=== PATIENT | male | born 1940 | race Caucasian/White ===

== ENCOUNTER 2017-10-24 07:43 | Day surgery (SDC) | payer MEDICARE ==
[~2017-10-24 07:43] MED LIST: AMLO10; AMLO10 PO; ASPI81CH; ASPI81CH PO; ATOR10; ATOR10 PO; DAILY MULTIPLE1 EACH; DOXA2; DOXA4 PO; FURO20; FURO20 PO; METO50ER; METO50ER PO; ZESTRIL40 MG; ZESTRIL40 MG PO; [UNRECOGNIZED DRUG - OTHER] PO
[2017-12-22] MEDS ORDERED: XARELTO20 MG PO (10:28)
[2017-12-22] MEDS ORDERED: Lasix40 MG PO (13:44)
[2018-01-02] MEDS ORDERED: IBUP600 PO (15:10)
[2018-01-02] MEDS ORDERED: AMLO10 PO (15:10)
[2018-01-02] MEDS ORDERED: XARELTO20 MG PO (15:11)
== END 2017-10-24 23:02 | disposition home or self-care (01) ==
LOC: ORSCMMR 07:43
PROVIDERS: Orthopaedic Surgery
PROC: 0X6M0Z3 Detachment at Left Thumb, Low, Open Approach (ICD-10-PCS; principal; 2017-10-24 09:30)
DX: S62.502B Fracture of unspecified phalanx of left thumb, initial encounter for open fracture (principal); I10 Essential (primary) hypertension; I25.10 Atherosclerotic heart disease of native coronary artery without angina pectoris; E66.01 Morbid (severe) obesity due to excess calories; Z68.41 Body mass index [BMI] 40.0-44.9, adult; Z79.899 Other long term (current) drug therapy; Z79.82 Long term (current) use of aspirin
CPT/HCPCS: 73140; J0690; J2250; J3010; J7120

== ENCOUNTER 2018-01-03 05:41 | Day surgery (SDC) | payer MEDICARE ==
[~2018-01-03] VITALS: Ht 182.9 cm; Wt 125.0 kg
[~2018-01-03 05:41] MED LIST changes: +IBUP600 PO; +Lasix40 MG PO; +XARELTO20 MG PO
== END 2018-01-03 22:37 | disposition home or self-care (01) ==
LOC: MHTC 05:41
PROC: 5A2204Z Restoration of Cardiac Rhythm, Single (ICD-10-PCS; principal; 2018-01-03)
DX: I48.1 Persistent atrial fibrillation (principal); Z95.2 Presence of prosthetic heart valve; I10 Essential (primary) hypertension; E78.00 Pure hypercholesterolemia, unspecified; Z87.891 Personal history of nicotine dependence
CPT/HCPCS: 92960; 93005; 93010; 99152; J2250; J3010; J7040

== ENCOUNTER 2020-01-24 06:15 | Day surgery (SDC) | payer MEDICARE ==
[~2020-01-24] VITALS: Ht 180.3 cm; Wt 125.0 kg
--- NOTE | 2020-01-24 10:00 | NUR ---
Pt received from Rivera Daniels RN, Pt in recliner chair denies any pain. Left shoulder site of icd dry and intact with opsite over the 2x2. No bleeding or hematoma noted. Pt sitting up drinking diet coke. IV Hep lock left AC. Pt with Trigeminy,bigeminy. VSS. Call light given to patient.
--- NOTE | 2020-01-24 11:12 | NUR ---
x-RAY HERE FOR LEAD PLACEMENT. SBAR TO KELBY LLOYD RN.
--- NOTE | 2020-01-24 11:40 | NUR ---
Pt transferred via wheelchair to room 9. Pt up voided and returned to bed.
--- NOTE | 2020-01-24 11:54 | NUR ---
ASSUMED CARE FROM FINANCE CONTROLLER, POST ICD PLACEMENT LEFT CHEST WALL. DRESSING CLEAN, DRY AND INTACT. DENIES CP AT THIS TIME, A/A/A/OX4, WILL CONTINUE TO MONITOR.
--- NOTE | 2020-01-24 18:35 | NUR ---
MADDI SUMMARY; ASSUMED CARE FROM [facility] DURING SHIFT POST ICD PLACEMENT TO LEFT CHEST WALL. DRESSING CLEAN, DRY AND INTACT. SLIGHT DISCOMFORT TO LEFT CHEST, MEDICATED WITH PO TYLENOLOL PER PT REQUEST. PAIN RESOLVED AT THIS TIME. DENIES SOB. INSTRUCTIONS GIVEN TO LIMIT LEFT ARM MOVEMENT WITH VERBAL UNDERSTANDING OF INSTRUCTIONS. IV TO LEFT AC WNL. WATCHING TV AT THIS TIME, DENIES NEEDS. WILL CONTINUE TO MONITOR UNTIL SHIFT CHANGE.
--- NOTE | 2020-01-25 00:16 | NUR ---
MID SHIFT PT AXO, VSS. PT INDEPENDENT IN ROOM. AICD IMPLANT SITE DRESSING INTACT. AREA TENDER AND SLIGHTLY RED BUT NOT EXCESSIVELY WARM. NO NEW DRAINAGE NOTED. NO ACUTE CARDIAC EPISODES NOTED ON TELE. REPORT GIVEN AND CARE RELINQUISHED TO TO ELLA [facility]LE.
--- NOTE | 2020-01-25 07:41 | NUR ---
ASSUMED CARE AT 0700, REPORT FROM ELEUTERIO JARAMILLO. SITTING UP AT SIDE OF BED, LEFT ARM SLING IN PLACE. A/A/OX4. ICD SITE TO LEFT CHEST WALL BANDAGED, NO BLEEDING, DRESSING DRY AND INTACT. PLAN OF CARE REVIEWED WITH PT, WILL CONTINUE TO MONITOR.
--- NOTE | 2020-01-25 11:58 | NUR ---
DISCHARGE INSTRUCTIONS REVIEWED WITH PT WITH CLEAR UNDERSTANDING. WOUND CARE FOR SURGICAL SITE REVIEWED, VERBALIZES UNDERSTANDING OF INSTRUCTIONS.
== END 2020-01-25 11:51 | disposition home or self-care (01) ==
LOC: MHTC 06:15 → PCU 10:58 → MHTC 01-25 11:51
DX: I42.8 Other cardiomyopathies (principal); I47.2 Ventricular tachycardia; I48.0 Paroxysmal atrial fibrillation; E78.00 Pure hypercholesterolemia, unspecified; I11.9 Hypertensive heart disease without heart failure; Z88.8 Allergy status to other drugs, medicaments and biological substances; Z79.899 Other long term (current) drug therapy; Z79.01 Long term (current) use of anticoagulants; Z87.891 Personal history of nicotine dependence
CPT/HCPCS: 33249; 71045; 71046; 76937; 99152; 99153; A9270; A9270-GY; C1722; C1894; C1895; J0690; J1644; J2250; J3010; J7030; J7040

== ENCOUNTER 2020-03-29 07:21 | Emergency (ER) | payer MEDICARE, OTHER ==
[~2020-03-29] VITALS: Ht 182.9 cm; Wt 124.7 kg
[~2020-03-29 07:21] MED LIST changes: +AMOCLA875 PO; -DOXA4 PO; -FURO20 PO; +FURO40 PO; +LISI20 PO; +MULTI VITAMIN1 EACH PO; -ZESTRIL40 MG PO; -[UNRECOGNIZED DRUG - OTHER] PO
[2020-03-29 07:59] LABS: BASOPHILS ABSOLUTE AUTO 0.03 K/mm3 (0.00-0.23); BASOPHILS PERCENT AUTO 1 % (0-2); EOSINOPHILS ABSOLUTE AUTO 0.11 K/mm3 (0.00-0.68); EOSINOPHILS PERCENT AUTO 2 % (0-6); Hematocrit 42.1 % (37.0-53.0); Hemoglobin 13.8 g/dL (13.5-17.5); IMMATURE GRAN ABSOLUTE AUTO 0.03 K/mm3 (0.00-0.10); IMMATURE GRAN PERCENT AUTO 1 % (0-1); LYMPHOCYTES ABSOLUTE AUTO 0.76 K/mm3 (0.84-5.20); LYMPHOCYTES PERCENT AUTO 12 % (21-46); MONOCYTES ABSOLUTE AUTO 0.72 K/mm3 (0.16-1.47); MONOCYTES PERCENT AUTO 11 % (4-13); Mean Corpuscular HGB Conc 32.8 g/dL (31.5-36.5); Mean Corpuscular Volume 92 fL (80-100); Mean Platelet Volume 11.2 fL (9.1-12.4); NEUTROPHILS ABSOLUTE AUTO 4.67 K/mm3 (1.96-9.15); NEUTROPHILS PERCENT AUTO 74 % (41-73); Platelet Count 153 K/mm3 (150-400); RDW Coefficient Variation 13.8 % (11.7-14.2); RDW Standard Deviation 46.4 fL (35.1-46.3); White Blood Cell Count 6.32 K/mm3 (4.00-11.30)
[2020-03-29 08:39] LABS: Alanine Aminotransfer (ALT/SGP 38 U/L (12-78); Albumin, Blood 3.9 g/dL (3.4-5.0); Albumin/Globulin Ratio 1.3 (0.8-1.8); Alk Phos 102 U/L (50-136); Anion Gap 6 mmol/L (6-16); Aspartate Aminotrans (AST/SGOT 20 U/L (12-37); Bilirubin, Total 0.5 mg/dL (0.1-1.0); Blood Urea Nitrogen 12 mg/dL (8-24); Bun/Creatinine Ratio 11.5 (12.0-20.0); CO2, Blood 26 mmol/L (21-32); Calcium, Blood 8.5 mg/dL (8.5-10.1); Chloride, Blood 96 mmol/L (98-108); Creatinine, Blood 1.04 mg/dL (0.60-1.20); Globulin, Blood 2.9 g/dL (2.2-4.0); Glomerular Filtration Rate >60 (60-); Glucose, Blood 119 mg/dL (70-99); Sodium, Blood 128 mmol/L (136-145); Total Protein, Blood 6.8 g/dL (6.4-8.2)
[2020-04-05] MEDS ORDERED: IBUP800 PO (14:20)
[2020-04-05] MEDS ORDERED: Cardura8 MG PO (14:41)
[2020-04-05] MEDS ORDERED: AMLO10 PO (14:41)
[2020-04-07] MEDS ORDERED: ACET325 PO (10:03)
[2020-04-07] MEDS ORDERED: FAMO20 PO (10:03)
[2020-04-07] MEDS ORDERED: METO2.5 PO (10:04)
[2020-04-07] MEDS ORDERED: ONDA4ODT MM (10:04)
[2020-04-07] MEDS ORDERED: TAMS.4ER PO (10:05)
== END 2020-03-29 10:12 | disposition home or self-care (01) ==
LOC: ER 07:21
PROVIDERS: Emergency Medicine
DX: R06.02 Shortness of breath (principal); I25.10 Atherosclerotic heart disease of native coronary artery without angina pectoris; Z95.0 Presence of cardiac pacemaker; Z88.8 Allergy status to other drugs, medicaments and biological substances; Z91.09 Other allergy status, other than to drugs and biological substances; Z79.899 Other long term (current) drug therapy; Z20.828 Contact with and (suspected) exposure to other viral communicable diseases; Z87.891 Personal history of nicotine dependence
CPT/HCPCS: 36415; 71045; 80053; 83880; 84484; 85025; 93005; 93010; 94640; 99285-25; U0002

== ENCOUNTER 2020-04-01 07:44 | Inpatient (IN) | payer MEDICARE, OTHER ==
[~2020-04-01] VITALS: Ht 182.9 cm; Wt 83.9 kg
[2020-04-01] MEDS ORDERED: ALBU3IS (08:06)
[2020-04-01 09:00] LABS: Base Excess Venous 1.2 mmol/L; Bicarbonate Venous 25.3 mmol/L (24.0-30.0); PCO2 Venous 39.9 mmHg (38-42); PO2 Venous 76.8 mmHg (38-42); pH Blood Venous 7.42 (7.34-7.37)
[2020-04-01 09:10] LABS: BASOPHILS ABSOLUTE AUTO 0.02 K/mm3 (0.00-0.23); BASOPHILS PERCENT AUTO 0 % (0-2); EOSINOPHILS ABSOLUTE AUTO 0.04 K/mm3 (0.00-0.68); EOSINOPHILS PERCENT AUTO 1 % (0-6); Hemoglobin 13.7 g/dL (13.5-17.5); IMMATURE GRAN ABSOLUTE AUTO 0.03 K/mm3 (0.00-0.10); IMMATURE GRAN PERCENT AUTO 0 % (0-1); LYMPHOCYTES ABSOLUTE AUTO 0.55 K/mm3 (0.84-5.20); LYMPHOCYTES PERCENT AUTO 8 % (21-46); MONOCYTES ABSOLUTE AUTO 0.64 K/mm3 (0.16-1.47); MONOCYTES PERCENT AUTO 9 % (4-13); Mean Corpuscular HGB 30.7 pg (26.0-34.0); Mean Corpuscular HGB Conc 34.3 g/dL (31.5-36.5); Mean Corpuscular Volume 90 fL (80-100); NEUTROPHILS ABSOLUTE AUTO 5.55 K/mm3 (1.96-9.15); NEUTROPHILS PERCENT AUTO 81 % (41-73); Platelet Count 146 K/mm3 (150-400); RDW Coefficient Variation 13.4 % (11.7-14.2); RDW Standard Deviation 44.1 fL (35.1-46.3); Red Blood Cell Count 4.46 M/mm3 (4.30-5.90); White Blood Cell Count 6.83 K/mm3 (4.00-11.30)
[2020-04-01 09:32] LABS: Alanine Aminotransfer (ALT/SGP 37 U/L (12-78); Albumin/Globulin Ratio 1.4 (0.8-1.8); Alk Phos 106 U/L (50-136); Anion Gap 8 mmol/L (6-16); Aspartate Aminotrans (AST/SGOT 19 U/L (12-37); Bilirubin, Total 0.8 mg/dL (0.1-1.0); Blood Urea Nitrogen 11 mg/dL (8-24); Bun/Creatinine Ratio 11.5 (12.0-20.0); CO2, Blood 26 mmol/L (21-32); Calcium, Blood 8.6 mg/dL (8.5-10.1); Chloride, Blood 92 mmol/L (98-108); Creatinine, Blood 0.96 mg/dL (0.60-1.20); Globulin, Blood 2.8 g/dL (2.2-4.0); Glomerular Filtration Rate >60 (60-); Glucose, Blood 119 mg/dL (70-99); Potassium, Blood 3.8 mmol/L (3.5-5.5); Sodium, Blood 126 mmol/L (136-145); Total Protein, Blood 6.8 g/dL (6.4-8.2)
[2020-04-02 04:54] LABS: Hematocrit 37.3 % (37.0-53.0); Hemoglobin 12.8 g/dL (13.5-17.5); Mean Corpuscular HGB 30.5 pg (26.0-34.0); Mean Corpuscular HGB Conc 34.3 g/dL (31.5-36.5); Mean Corpuscular Volume 89 fL (80-100); Platelet Count 145 K/mm3 (150-400); RDW Coefficient Variation 13.2 % (11.7-14.2); RDW Standard Deviation 43.4 fL (35.1-46.3); Red Blood Cell Count 4.19 M/mm3 (4.30-5.90); White Blood Cell Count 5.45 K/mm3 (4.00-11.30)
[2020-04-02 05:18] LABS: Alanine Aminotransfer (ALT/SGP 32 U/L (12-78); Albumin, Blood 3.6 g/dL (3.4-5.0); Albumin/Globulin Ratio 1.3 (0.8-1.8); Alk Phos 101 U/L (50-136); Anion Gap 6 mmol/L (6-16); Aspartate Aminotrans (AST/SGOT 19 U/L (12-37); Bilirubin, Total 0.9 mg/dL (0.1-1.0); Blood Urea Nitrogen 11 mg/dL (8-24); Bun/Creatinine Ratio 11.6 (12.0-20.0); CO2, Blood 27 mmol/L (21-32); Calcium, Blood 8.2 mg/dL (8.5-10.1); Chloride, Blood 92 mmol/L (98-108); Creatinine, Blood 0.95 mg/dL (0.60-1.20); Globulin, Blood 2.8 g/dL (2.2-4.0); Glomerular Filtration Rate >60 (60-); Glucose, Blood 108 mg/dL (70-99); Potassium, Blood 4.1 mmol/L (3.5-5.5); Sodium, Blood 125 mmol/L (136-145); Total Protein, Blood 6.4 g/dL (6.4-8.2)
[2020-04-03 05:10] LABS: BASOPHILS ABSOLUTE AUTO 0.04 K/mm3 (0.00-0.23); BASOPHILS PERCENT AUTO 1 % (0-2); EOSINOPHILS ABSOLUTE AUTO 0.11 K/mm3 (0.00-0.68); EOSINOPHILS PERCENT AUTO 2 % (0-6); Hematocrit 38.8 % (37.0-53.0); IMMATURE GRAN ABSOLUTE AUTO 0.02 K/mm3 (0.00-0.10); IMMATURE GRAN PERCENT AUTO 0 % (0-1); LYMPHOCYTES ABSOLUTE AUTO 0.94 K/mm3 (0.84-5.20); LYMPHOCYTES PERCENT AUTO 16 % (21-46); MONOCYTES ABSOLUTE AUTO 0.78 K/mm3 (0.16-1.47); MONOCYTES PERCENT AUTO 13 % (4-13); Mean Corpuscular HGB 30.1 pg (26.0-34.0); Mean Corpuscular HGB Conc 33.5 g/dL (31.5-36.5); Mean Corpuscular Volume 90 fL (80-100); Mean Platelet Volume 10.9 fL (9.1-12.4); NEUTROPHILS ABSOLUTE AUTO 3.92 K/mm3 (1.96-9.15); NEUTROPHILS PERCENT AUTO 68 % (41-73); Platelet Count 153 K/mm3 (150-400); RDW Coefficient Variation 13.2 % (11.7-14.2); Red Blood Cell Count 4.32 M/mm3 (4.30-5.90); White Blood Cell Count 5.81 K/mm3 (4.00-11.30)
[2020-04-03 05:41] LABS: Anion Gap 4 mmol/L (6-16); Blood Urea Nitrogen 14 mg/dL (8-24); Bun/Creatinine Ratio 13.6 (12.0-20.0); CO2, Blood 29 mmol/L (21-32); Calcium, Blood 8.1 mg/dL (8.5-10.1); Chloride, Blood 94 mmol/L (98-108); Creatinine, Blood 1.03 mg/dL (0.60-1.20); Glomerular Filtration Rate >60 (60-); Glucose, Blood 97 mg/dL (70-99); Potassium, Blood 4.1 mmol/L (3.5-5.5); Sodium, Blood 127 mmol/L (136-145)
[2020-04-03] MEDS ORDERED: Amiodarone HCl200 MG PO (17:06)
[2020-04-03] MEDS ORDERED: SPIR50 PO (17:07)
[2020-04-03] MEDS ORDERED: ALBU90OI INH (17:07)
[2020-04-05] MEDS ORDERED: IBUP800 PO (14:20)
[2020-04-05] MEDS ORDERED: Cardura8 MG PO (14:41)
[2020-04-05] MEDS ORDERED: AMLO10 PO (14:41)
[2020-04-07] MEDS ORDERED: ACET325 PO (10:03)
[2020-04-07] MEDS ORDERED: FAMO20 PO (10:03)
[2020-04-07] MEDS ORDERED: METO2.5 PO (10:04)
[2020-04-07] MEDS ORDERED: ONDA4ODT MM (10:04)
[2020-04-07] MEDS ORDERED: TAMS.4ER PO (10:05)
== END 2020-04-03 17:15 | disposition home or self-care (01) | DRG 291 ==
LOC: ER 07:44 → MEDS 11:30
PROVIDERS: Internal Medicine; Nurse Practitioner Acute Care; Physician Assistant; ADMIT Internal Medicine
DX: I11.0 Hypertensive heart disease with heart failure (principal); J96.01 Acute respiratory failure with hypoxia; E87.1 Hypo-osmolality and hyponatremia; Z20.828 Contact with and (suspected) exposure to other viral communicable diseases; I50.43 Acute on chronic combined systolic (congestive) and diastolic (congestive) heart failure; I48.0 Paroxysmal atrial fibrillation; I42.8 Other cardiomyopathies; I25.10 Atherosclerotic heart disease of native coronary artery without angina pectoris; E78.00 Pure hypercholesterolemia, unspecified; E78.5 Hyperlipidemia, unspecified; Z87.891 Personal history of nicotine dependence
CPT/HCPCS: 36415; 71045; 71260; 80048; 80053; 82803; 82947; 83880; 84295; 84484; 85025; 85027; 85379; 93005; 93010; 94644; 94660; 94760; 94762; 96365; 96366; 99285-25; C8929; J1940; J3475; Q9957; Q9967; U0002

== ENCOUNTER 2020-05-31 08:24 | Emergency (ER) | payer MEDICARE ==
[~2020-05-31] VITALS: Ht 182.9 cm; Wt 125.2 kg
[~2020-05-31 08:24] MED LIST changes: +ACET325 PO; +ALBU3IS; +ALBU90OI INH; +Amiodarone HCl200 MG PO; +Cardura8 MG PO; +FAMO20 PO; +IBUP800 PO; +METO2.5 PO; +ONDA4ODT MM; +SPIR50 PO; +TAMS.4ER PO
[2020-05-31] MEDS ORDERED: ENTRESTO 24 MG1 EACH PO (08:54)
[2020-05-31 09:32] LABS: Troponin I <0.015 ng/mL (0.000-0.040)
[2020-05-31 09:33] LABS: Alanine Aminotransfer (ALT/SGP 45 U/L (12-78); Albumin, Blood 3.9 g/dL (3.4-5.0); Albumin/Globulin Ratio 1.3 (0.8-1.8); Alk Phos 97 U/L (50-136); Anion Gap 8 mmol/L (6-16); Aspartate Aminotrans (AST/SGOT 27 U/L (12-37); Bilirubin, Total 0.6 mg/dL (0.1-1.0); Blood Urea Nitrogen 25 mg/dL (8-24); CO2, Blood 25 mmol/L (21-32); Calcium, Blood 8.7 mg/dL (8.5-10.1); Chloride, Blood 106 mmol/L (98-108); Creatinine, Blood 1.56 mg/dL (0.60-1.20); Glomerular Filtration Rate 46 (60-); Glucose, Blood 138 mg/dL (70-99); Potassium, Blood 4.3 mmol/L (3.5-5.5); Sodium, Blood 139 mmol/L (136-145); Total Protein, Blood 6.9 g/dL (6.4-8.2)
[2020-05-31 09:39] LABS: BASOPHILS ABSOLUTE AUTO 0.03 K/mm3 (0.00-0.23); BASOPHILS PERCENT AUTO 0 % (0-2); EOSINOPHILS ABSOLUTE AUTO 0.11 K/mm3 (0.00-0.68); EOSINOPHILS PERCENT AUTO 2 % (0-6); Hematocrit 43.9 % (37.0-53.0); IMMATURE GRAN ABSOLUTE AUTO 0.02 K/mm3 (0.00-0.10); IMMATURE GRAN PERCENT AUTO 0 % (0-1); LYMPHOCYTES ABSOLUTE AUTO 0.97 K/mm3 (0.84-5.20); LYMPHOCYTES PERCENT AUTO 13 % (21-46); MONOCYTES ABSOLUTE AUTO 0.81 K/mm3 (0.16-1.47); MONOCYTES PERCENT AUTO 11 % (4-13); Mean Corpuscular HGB 29.8 pg (26.0-34.0); Mean Corpuscular HGB Conc 31.9 g/dL (31.5-36.5); Mean Corpuscular Volume 93 fL (80-100); Mean Platelet Volume 11.3 fL (9.1-12.4); NEUTROPHILS ABSOLUTE AUTO 5.35 K/mm3 (1.96-9.15); NEUTROPHILS PERCENT AUTO 73 % (41-73); Platelet Count 200 K/mm3 (150-400); RDW Coefficient Variation 15.7 % (11.7-14.2); RDW Standard Deviation 54.5 fL (35.1-46.3); White Blood Cell Count 7.29 K/mm3 (4.00-11.30)
== END 2020-05-31 12:23 | disposition home or self-care (01) ==
LOC: ER 08:24
PROVIDERS: Emergency Medicine
DX: I11.0 Hypertensive heart disease with heart failure (principal); I50.9 Heart failure, unspecified; I25.10 Atherosclerotic heart disease of native coronary artery without angina pectoris; I48.91 Unspecified atrial fibrillation; E78.00 Pure hypercholesterolemia, unspecified; Z91.09 Other allergy status, other than to drugs and biological substances; Z88.8 Allergy status to other drugs, medicaments and biological substances; Z79.01 Long term (current) use of anticoagulants; Z79.899 Other long term (current) drug therapy; Z87.891 Personal history of nicotine dependence
CPT/HCPCS: 71045; 80053; 83880; 84484; 85025; 93005; 93010; 96374; 99285-25; J1940

== ENCOUNTER 2020-08-11 18:13 | Inpatient (IN) | payer MEDICARE ==
[~2020-08-11] VITALS: Ht 182.9 cm; Wt 120.3 kg
[~2020-08-11 18:13] MED LIST changes: +AMLO5 PO; +ANORO ELLIPTA1 EAC1 INH; +BUME2 PO; +ENTRESTO 24 MG1 EACH PO; +IBU800 MG PO; +Isosorbide Mono30 MG PO; +METO25ER PO; +XARELTO15 MG PO
[2020-08-11] MEDS ORDERED: FARXIGA10 MG PO ×2 (18:51→18:55)
[2020-08-11] MEDS ORDERED: Amiodarone HCl200 MG PO (18:53)
[2020-08-11] MEDS ORDERED: ATOR20 PO (18:53)
[2020-08-11] MEDS ORDERED: IBUP800 PO (18:54)
[2020-08-11] MEDS ORDERED: METO25ER PO (18:54)
[2020-08-11] MEDS ORDERED: ENTRESTO 97 MG1 EACH PO (18:55)
[2020-08-11] MEDS ORDERED: XARELTO15 MG PO (18:55)
[2020-08-11 20:03] LABS: BASOPHILS ABSOLUTE AUTO 0.03 K/mm3 (0.00-0.23); BASOPHILS PERCENT AUTO 0 % (0-2); EOSINOPHILS ABSOLUTE AUTO 0.04 K/mm3 (0.00-0.68); EOSINOPHILS PERCENT AUTO 0 % (0-6); Hematocrit 45.8 % (37.0-53.0); Hemoglobin 14.7 g/dL (13.5-17.5); IMMATURE GRAN ABSOLUTE AUTO 0.05 K/mm3 (0.00-0.10); IMMATURE GRAN PERCENT AUTO 0 % (0-1); LYMPHOCYTES ABSOLUTE AUTO 0.35 K/mm3 (0.84-5.20); LYMPHOCYTES PERCENT AUTO 3 % (21-46); MONOCYTES ABSOLUTE AUTO 0.78 K/mm3 (0.16-1.47); MONOCYTES PERCENT AUTO 6 % (4-13); Mean Corpuscular HGB 29.9 pg (26.0-34.0); Mean Corpuscular HGB Conc 32.1 g/dL (31.5-36.5); Mean Corpuscular Volume 93 fL (80-100); Mean Platelet Volume 11.1 fL (9.1-12.4); NEUTROPHILS ABSOLUTE AUTO 13.02 K/mm3 (1.96-9.15); NEUTROPHILS PERCENT AUTO 91 % (41-73); Platelet Count 151 K/mm3 (150-400); RDW Coefficient Variation 14.4 % (11.7-14.2); RDW Standard Deviation 50.2 fL (35.1-46.3); Red Blood Cell Count 4.91 M/mm3 (4.30-5.90); White Blood Cell Count 14.27 K/mm3 (4.00-11.30)
[2020-08-11 20:19] LABS: Albumin, Blood 3.9 g/dL (3.4-5.0); Albumin/Globulin Ratio 1.1 (0.8-1.8); Bilirubin, Total 0.4 mg/dL (0.1-1.0); Bun/Creatinine Ratio 16.7 (12.0-20.0); Calcium, Blood 8.7 mg/dL (8.5-10.1); Creatinine, Blood 1.32 mg/dL (0.60-1.20); Globulin, Blood 3.4 g/dL (2.2-4.0); Potassium, Blood 5.1 mmol/L (3.5-5.5); Total Protein, Blood 7.3 g/dL (6.4-8.2); Troponin I 0.021 ng/mL (0.000-0.040)
[2020-08-11 20:47] LABS: Influenza A, PCR Negative (NEGATIVE); Influenza B, PCR Negative (NEGATIVE); Resp Syncytial Virus, PCR Negative (NEGATIVE); SARS-Cov-2 (COVID-19) PCR, MMC Negative (NEGATIVE)
[2020-08-11] MEDS ORDERED: FUROSEMIDE40 MG PO (21:02)
[2020-08-11] MEDS ORDERED: SPIRONOLACTONE25 MG PO ×2 (21:02→21:05)
[2020-08-11 21:53] LABS: Source, Urine Clean Catch
[2020-08-11 22:22] LABS: Appearance, Urine Clear (Clear); Bilirubin, Urine Neg (Neg); Blood, Urine 2+ (Neg); Color, Urine Yellow (P-Yellow); Glucose Qualitative, Urine 4+ (Neg); Ketones, Urine 1+ (Neg); Leukocyte Esterase, Urine Neg (Neg); Nitrite, Urine Neg (Neg); Protein, Urine 1+ (Neg); Specific Gravity, Urine 1.015 (1.003-1.022); Urobilinogen, Urine NORM (Normal)
[2020-08-11 22:31] LABS: Bacteria Few /hpf; Squamous Epithelial Cells Rare /hpf (Few); White Blood Cells, Urine 0-2 /hpf (0-5)
--- NOTE | 2020-08-12 00:05 | NUR ---
REPORT RECEIVED FROM HUBERED RN. PT TRANSPORTED TO MEDICAL FLOOR VIA GURNEY, AMBULATED SELF TO BED. ORIENTED TO ROOM/UNIT. PT DENIES NEEDS AT THIS TIME. CALL LIGHT, POSSESSIONS IN REACH, BED IN LOW POSITION. GAY.
--- NOTE | 2020-08-12 01:15 | NUR ---
SPOKE TO DR. DORSEY REGARDING PT'S NEED FOR CODE STATUS AND LOW BP'S. ORDERS RECEIVED, SEE DOWNTIME CHARTING. WCTM.
[2020-08-12 06:47] LABS: BASOPHILS ABSOLUTE AUTO 0.04 K/mm3 (0.00-0.23); BASOPHILS PERCENT AUTO 0 % (0-2); EOSINOPHILS ABSOLUTE AUTO 0.01 K/mm3 (0.00-0.68); EOSINOPHILS PERCENT AUTO 0 % (0-6); Hematocrit 42.2 % (37.0-53.0); Hemoglobin 13.6 g/dL (13.5-17.5); IMMATURE GRAN ABSOLUTE AUTO 0.06 K/mm3 (0.00-0.10); IMMATURE GRAN PERCENT AUTO 0 % (0-1); LYMPHOCYTES ABSOLUTE AUTO 0.49 K/mm3 (0.84-5.20); LYMPHOCYTES PERCENT AUTO 3 % (21-46); MONOCYTES ABSOLUTE AUTO 1.35 K/mm3 (0.16-1.47); MONOCYTES PERCENT AUTO 8 % (4-13); Mean Corpuscular HGB Conc 32.2 g/dL (31.5-36.5); Mean Corpuscular Volume 93 fL (80-100); Mean Platelet Volume 10.9 fL (9.1-12.4); NEUTROPHILS ABSOLUTE AUTO 14.09 K/mm3 (1.96-9.15); NEUTROPHILS PERCENT AUTO 88 % (41-73); Platelet Count 127 K/mm3 (150-400); RDW Coefficient Variation 14.6 % (11.7-14.2); RDW Standard Deviation 50.3 fL (35.1-46.3); Red Blood Cell Count 4.53 M/mm3 (4.30-5.90); White Blood Cell Count 16.04 K/mm3 (4.00-11.30)
--- NOTE | 2020-08-12 07:00 | NUR ---
SHIFT SUMMARY PT RESTING COMFORTABLY, NO S/S ACUTE DISTRESS NOTED. WAS MONITORED EVERY 1-2 HOURS WITH NEEDS MET. VS REVIEWED, WNL, BP'S STABLE. REDNESS TO RUE APPEARS TO HAVE LESSENED T/O NIGHT, PT DENIES PAIN OR NUMBNESS OR TINGLING AT THIS TIME. DENIES NEEDS. CALL LIGHT, POSSESSIONS IN REACH, BED IN LOW POSITION. IVF ONGOING. REPORT GIVEN TO ELEUTERIO CARLOS.
[2020-08-12 08:23] LABS: Albumin, Blood 3.3 g/dL (3.4-5.0); Bilirubin, Total 0.5 mg/dL (0.1-1.0); Calcium, Blood 8.2 mg/dL (8.5-10.1); Creatinine, Blood 1.25 mg/dL (0.60-1.20); Globulin, Blood 3.3 g/dL (2.2-4.0); Potassium, Blood 4.7 mmol/L (3.5-5.5); Total Protein, Blood 6.6 g/dL (6.4-8.2)
--- NOTE | 2020-08-12 18:39 | NUR ---
SHIFT SUMMARY- PT IS A/O, PLESANT AND COOPERATIVE. HE IS EATING AND DRINKING WELL. RECIEVING IV ABX. HE HAD GRAM + COCCI IN CHAINS IN HIS BLOOD CULTURES, NOTIFIED DR. JHAVERI. HE WALKED IN THE HALLWAY WITH HIS THIS AFTERNOON. SLEPT INTERMINTENTLY THROUGHOUT THIS SHIFT. HIS BED IS IN THE LOW POSITION AND CALL LIGHT WITHIN REACH.
[2020-08-12] MEDS ORDERED: FURO40 PO (20:31)
--- NOTE | 2020-08-13 04:09 | NUR ---
SHIFT SUMMARY ASSUMED CARE OF PT AT 1900. PT IS A/OX4. HEART SOUNDS REGULAR, LUNG SOUNDS CLEAR. PT R ARM IS SWOLLEN AND DISCOLORED. PT DENIES PAIN. PT IS INDEPENDENT IN ROOM. NO ACUTE EVENTS DURING THE NIGHT. PT SLEPT T/O THE NIGHT. CALL LIGHT IN REACH, BED IN LOWEST POSTION.
[2020-08-13 05:08] LABS: BASOPHILS ABSOLUTE AUTO 0.03 K/mm3 (0.00-0.23); BASOPHILS PERCENT AUTO 1 % (0-2); EOSINOPHILS ABSOLUTE AUTO 0.21 K/mm3 (0.00-0.68); EOSINOPHILS PERCENT AUTO 3 % (0-6); Hematocrit 39.2 % (37.0-53.0); Hemoglobin 12.5 g/dL (13.5-17.5); IMMATURE GRAN ABSOLUTE AUTO 0.03 K/mm3 (0.00-0.10); IMMATURE GRAN PERCENT AUTO 1 % (0-1); LYMPHOCYTES ABSOLUTE AUTO 0.79 K/mm3 (0.84-5.20); LYMPHOCYTES PERCENT AUTO 12 % (21-46); MONOCYTES ABSOLUTE AUTO 1.02 K/mm3 (0.16-1.47); MONOCYTES PERCENT AUTO 16 % (4-13); Mean Corpuscular HGB Conc 31.9 g/dL (31.5-36.5); Mean Corpuscular Volume 94 fL (80-100); Mean Platelet Volume 11.5 fL (9.1-12.4); NEUTROPHILS ABSOLUTE AUTO 4.51 K/mm3 (1.96-9.15); NEUTROPHILS PERCENT AUTO 68 % (41-73); Platelet Count 107 K/mm3 (150-400); RDW Coefficient Variation 14.8 % (11.7-14.2); RDW Standard Deviation 51.5 fL (35.1-46.3); Red Blood Cell Count 4.17 M/mm3 (4.30-5.90); White Blood Cell Count 6.59 K/mm3 (4.00-11.30)
[2020-08-13 05:29] LABS: Anion Gap 7 mmol/L (6-16); Blood Urea Nitrogen 25 mg/dL (8-24); Bun/Creatinine Ratio 20.5 (12.0-20.0); CO2, Blood 22 mmol/L (21-32); Calcium, Blood 8.1 mg/dL (8.5-10.1); Chloride, Blood 108 mmol/L (98-108); Creatinine, Blood 1.22 mg/dL (0.60-1.20); Glomerular Filtration Rate >60 (60-); Glucose, Blood 157 mg/dL (70-99); Potassium, Blood 4.3 mmol/L (3.5-5.5); Sodium, Blood 137 mmol/L (136-145)
--- NOTE | 2020-08-13 17:08 | NUR ---
SHIFT SUMMARY- PT IS A/O, PLESANT AND COOPERATIVE. HE IS EATING AND DRINKING WELL. HE IS RECIEVING IV ABX FOR INFECTION IN HIS ARM WHICH HAS REDUCED AREA OF REDDNESS COMPARED WITH THE ORIGIONAL MARKINGS. HE IS EATING AND DRINKING WELL. HIS BED IS IN THE LOW POSITION AND CALL LIGHT WITHIN REACH.
--- NOTE | 2020-08-14 04:55 | NUR ---
SHIFT SUMMARY ASSUMED CARE OF PT AT 1900. PT IS A/OX4. HEART SOUNDS REGULAR, LUNG SOUNDS CLEAR. PT IS INDEPENDENT TO BATHROOM. PT STATES THAT HIS R ARM IS FEELING MUCH BETTER AND IT IS ACTUALLY HIS L ARM HURTING HIM DUE TO IV. PT HAS NO NEW COMPLAINTS THIS PM. PT STATES THAT HE HOPES TO GO HOME TODAY WITH ORAL ABX. CALL LIGHT IN REACH, BED IN LOWEST POSTION.
[2020-08-14] MEDS ORDERED: LACTOBACILLUS1 EAC4 PO (10:47)
[2020-08-14] MEDS ORDERED: CEPH500 PO (10:47)
--- NOTE | 2020-08-14 11:38 | NUR ---
PT DISHCARGED HOME VIA PERSONAL VEHICLE DRIVEN BY . ESCORTED TO ENTRANCE VIA W/C BY ELECTRONIC TYPESETTING MACHINE OPERATOR. IV REMOVED. D/C INSTRUCTIONS REVIEWED WITH PT AND COPY PROVIDED. NEW RX FAXED TO [facility] PER PT REQUEST. NO NEW CHANGES OR CONCENS.
== END 2020-08-14 11:39 | disposition home or self-care (01) | DRG 872 ==
LOC: ER 18:13 → MEDS 22:40 → ERHOLD 22:40 → MEDS 08-12 00:03 → ENPENDDIS 08-14 09:27 → MEDS 08-14 11:39
PROVIDERS: Internal Medicine; Physician Assistant; ADMIT Internal Medicine
DX: A40.1 Sepsis due to streptococcus, group B (principal); L03.113 Cellulitis of right upper limb; I13.0 Hypertensive heart and chronic kidney disease with heart failure and stage 1 through stage 4 chronic kidney disease, or unspecified chronic kidney disease; I50.22 Chronic systolic (congestive) heart failure; I42.9 Cardiomyopathy, unspecified; N17.9 Acute kidney failure, unspecified; Z20.828 Contact with and (suspected) exposure to other viral communicable diseases; I48.0 Paroxysmal atrial fibrillation; N18.30 Chronic kidney disease, stage 3 unspecified; I25.10 Atherosclerotic heart disease of native coronary artery without angina pectoris; Z95.2 Presence of prosthetic heart valve; Z87.891 Personal history of nicotine dependence; E78.5 Hyperlipidemia, unspecified; Z95.0 Presence of cardiac pacemaker
CPT/HCPCS: 0241U; 36415; 71045; 80048; 80053; 81001; 83605; 84484; 85025; 87040; 87147; 93971; 96365; 96366; 96375; 99285-25; A9270; A9270-GY; C8929; J0690; J0696; J3370; J7030; J7050; Q9957

== ENCOUNTER → 2023-09-05 | Outpatient (CLI) | payer OTHER ==
[~2023-09-05] MED LIST changes: +ATOR20 PO; +CEPH500 PO; +ELIQUIS5 M2 PO; +ENTRESTO 97 MG1 EACH PO; +FARXIGA10 MG PO; +FUROSEMIDE40 MG PO; +LACTOBACILLUS1 EAC4 PO; +Percocet 5-3251 EACH PO; +SPIRONOLACTONE25 MG PO
[2023-09-07 07:12] LABS: A/G RATIO 1.9 (1.2-2.2); ALKALINE PHOSPHATASE, S 128 IU/L (44-121); ALT (SGPT) 53 IU/L (0-44); AST (SGOT) 33 IU/L (0-40); BILIRUBIN, TOTAL 0.3 mg/dL (0.0-1.2); BUN 25 mg/dL (8-27); BUN/CREATININE RATIO 20 (10-24); CARBON DIOXIDE, TOTAL 19 mmol/L (20-29); CHLORIDE, SERUM 99 mmol/L (96-106); CREATININE, SERUM 1.23 mg/dL (0.76-1.27); GLOBULIN, TOTAL 2.3 g/dL (1.5-4.5); GLUCOSE, SERUM 93 mg/dL (70-99); PHOSPHORUS, SERUM 4.1 mg/dL (2.8-4.1); POTASSIUM, SERUM 5.2 mmol/L (3.5-5.2); PROTEIN, TOTAL, SERUM 6.6 g/dL (6.0-8.5); SODIUM, SERUM 134 mmol/L (134-144)
== END ==
LOC: LAB SHORT 13:09 → LAB 13:09 → LAB SHORT 09-06 07:24
PROVIDERS: Internal Medicine Hematology & Oncology
DX: C43.8 Malignant melanoma of overlapping sites of skin (principal)
CPT/HCPCS: 80053; 80069; 84100

== ENCOUNTER → 2024-10-15 | Outpatient (CLI) | payer OTHER ==
[2024-10-15 12:05] LABS: Protein, Urine Quantitative 6.5 mg/dL (0.0-11.9)
[2024-10-15 12:12] LABS: Microalbumin, Urine Quant. <5.000 mg/L (0.000-20.000)
== END ==
LOC: LAB SHORT 05:00 → LAB 05:00
PROVIDERS: Internal Medicine Nephrology
DX: N18.30 Chronic kidney disease, stage 3 unspecified (principal); D63.1 Anemia in chronic kidney disease; N25.81 Secondary hyperparathyroidism of renal origin; E55.9 Vitamin D deficiency, unspecified; E78.00 Pure hypercholesterolemia, unspecified
CPT/HCPCS: 81050; 82043; 82570; 84156